=== PATIENT | male | born 1955 | race Caucasian/White ===

== ENCOUNTER 2017-08-21 03:30 | Emergency (ER) | payer MEDICARE ==
[~2017-08-21] VITALS: Ht 177.8 cm; Wt 107.0 kg
[2017-08-21] MEDS ORDERED: IPRATROPIUM BROMIDE (0.02%) 0.5MG/2.5ML NEB HHN STA (04:25)
[2017-08-21] MEDS ORDERED: ALBUTEROL (0.083%) 2.5MG/3ML NEB HHN STA (04:25)
[2017-08-21] MEDS ORDERED: PREDNISONE 20MG TABLET PO STA (04:25)
[2017-08-21] MEDS ORDERED: ACYCLOVIR 400 MG TABLET PO ONE (04:30)
[2017-08-21 06:28] VITALS: BP 129/85
== END 2017-08-21 06:42 | disposition home or self-care (01) ==
LOC: ER 03:30
DX: J44.9 Chronic obstructive pulmonary disease, unspecified (principal); B00.1 Herpesviral vesicular dermatitis; F41.9 Anxiety disorder, unspecified; F32.9 Major depressive disorder, single episode, unspecified; F17.200 Nicotine dependence, unspecified, uncomplicated
CPT/HCPCS: 94640; 99283; J7512; J7611